=== PATIENT | male | born 1955 | race Caucasian/White ===

== ENCOUNTER 2017-09-02 11:05 | Emergency (ER) | payer BC ==
[2017-09-02] MEDS ORDERED: VANCOMYCIN HCL INJ 1000 MG VIAL IV ONE (11:38)
[2017-09-02] MEDS ORDERED: CEFTRIAXONE 1 GM/D5W RTU 1 GM/50 ML RTUPB IV ONE (11:38)
--- NOTE | 2017-09-02 11:41 | ER Document Report ---
ED Medical Screen (RME) - General Chief Complaint: Knee Pain Stated Complaint: KNEE PAIN Time Seen by Provider: 09/02/17 11:26 TRAVEL OUTSIDE OF THE U.S. IN LAST 30 DAYS: No - HPI Notes: 09/02/17 11:39 Patient is a 61-year-old male no significant past medical history presents to the ED complaining of right knee pain, swelling, redness, and warmth times 1 day. Patient states he was on his knees a little bit yesterday working. Patient states that he did have an abscess to the lower anterior knee over the last couple weeks, but has not noticed any redness or worsening pain from that site. Patient states that he cannot bend his knee without pain. He is otherwise eating and drinking without any difficulties. Denies any fever. Denies any chest pain, shortness of breath, abdominal pain, nausea/vomiting, or back pain. I have treated and performed a rapid initial assessment of this patient. A comprehensive ED assessment and evaluation of the patient, analysis of test results and completion of medical decision making process will be conducted by additional ED providers. Dr. Terry also eval'd the patient and recommended septic joint work up. PHYSICAL EXAMINATION: GENERAL: Well-appearing, well-nourished and in no acute distress. A&Ox4. Answers questions appropriately. LUNGS: Breath sounds clear to auscultation bilaterally and equal. No wheezes rales or rhonchi. HEART: Regular rate and rhythm without murmurs, rubs, gallops. Rt knee: + erythema, warmth, and swelling. + tenderness. LROM due to pain. N /V intact distal. Extremities: No cyanosis, clubbing, or edema b/l. NEUROLOGICAL: Normal speech, normal gait. PSYCH: Normal mood, normal affect. - Related Data Allergies/Adverse Reactions: Penicillins Allergy (Verified 09/02/17 11:08) Past Medical History - Social History Chew tobacco use (# tins/day): No Frequency of alcohol use: None Drug Abuse: None Renal/ Medical History: Denies: Hx Peritoneal Dialysis Physical Exam - Vital signs Vitals: Temp Pulse Resp BP Pulse Ox 98.5 F 79 20 142/75 H 97 09/02/17 11:13 09/02/17 11:13 09/02/17 11:13 09/02/17 11:13 09/02/17 11:13 Course - Vital Signs Vital signs: Temp Pulse Resp BP Pulse Ox 98.5 F 79 20 142/75 H 97 09/02/17 11:13 09/02/17 11:13 09/02/17 11:13 09/02/17 11:13 09/02/17 11:13
--- NOTE | 2017-09-02 11:53 | ER Document Report ---
ED Extremity Problem, Lower - General Chief Complaint: Knee Pain Stated Complaint: KNEE PAIN Time Seen by Provider: 09/02/17 11:26 Mode of Arrival: Ambulatory Information source: Patient TRAVEL OUTSIDE OF THE [place].S[place] IN LAST 30 DAYS: No - HPI Patient complains to provider of: Pain, Swelling Location: Knee - RIGHT Occurred: Yesterday Where: Outdoors Onset/Duration: Gradual Quality of pain: Burning, Dull, Fullness Severity: Moderate Recent injury: Yes - MINOR WOUND IN PRE-PATELLAR AREA 1 WEEK AGO Associated symptoms: Painful ambulation. denies: Chills, Fever, Unable to bear weight Exacerbated by: Movement Relieved by: Rest - Related Data Allergies/Adverse Reactions: Penicillins Allergy (Verified 09/02/17 11:08) Past Medical History - General Information source: Patient - Social History Smoking Status: Never Smoker Cigarette use (# per day): No Chew tobacco use (# tins/day): No Frequency of alcohol use: None Drug Abuse: None Lives with: Family, Other - VISITING HERE, FROM [place] Family History: Reviewed & Not Pertinent Patient has suicidal ideation: No Patient has homicidal ideation: No - Past Medical History Cardiac Medical History: Reports: Hx Hypercholesterolemia, Hx Hypertension, Other - TACHYCARDIA Pulmonary Medical History: Reports: None EENT Medical History: Reports: None Neurological Medical History: Reports: None Endocrine Medical History: Reports: None Renal/ Medical History: Reports: None. Denies: Hx Peritoneal Dialysis Malignancy Medical History: Reports None GI Medical History: Reports: None Musculoskeltal Medical History: Reports None Psychiatric Medical History: Reports: None Surgical Hx: Negative Review of Systems - Review of Systems Constitutional: No symptoms reported. denies: Chills, Fever EENT: No symptoms reported Cardiovascular: No symptoms reported Respiratory: No symptoms reported Gastrointestinal: No symptoms reported Genitourinary: No symptoms reported Musculoskeletal: See HPI Skin: See HPI Neurological/Psychological: No symptoms reported Physical Exam - Vital signs Vitals: Temp Pulse Resp BP Pulse Ox 98.5 F 79 20 142/75 H 97 09/02/17 11:13 09/02/17 11:13 09/02/17 11:13 09/02/17 11:13 09/02/17 11:13 Interpretation: Hypertensive. No: Tachycardic, Tachypneic - General General appearance: Appears well, Alert In distress: None - HEENT Head: Normocephalic Eyes: Normal Conjunctiva: Normal Ears: Normal Nasal: Normal Mouth/Lips: Normal Mucous membranes: Normal - Respiratory Respiratory status: No respiratory distress - Cardiovascular Rhythm: Regular - Abdominal Inspection: Normal Distension: No distension - Back Back: Normal - Extremities General upper extremity: Normal inspection General lower extremity: No: Normal inspection - R. KNEE (SEE BELOW) Knee: Tender - PATELLAR AREA, Pain with ROM, Patellar tendon intact, Other - HEALING PUNCTURE WOUND OVER INSERTION OF PATELLAR TENDON. NONTENDER POPLITEAL AREA. NONTENDER OVER COLLATERAL LIGAMENTS.. No: Joint effusion, Laceration, Unable to bear weight - Neurological Neuro grossly intact: Yes Cognition: Normal Orientation: AAOx4 - Skin Skin Temperature: Warm Skin Moisture: Dry Skin Color: Normal Skin Turgor: Elastic Skin irregularity: Erythema - AND WARMTH, OVER R. PATELLA. DOES NOT EXTEND PAST COLLATERAL LIGAMENTS. NO POPLITEAL REDNESS OR TENDERNESS. Course - Re-evaluation Re-evalutation: 09/02/17 13:24 Patient had sudden onset of itching and a sensation of warmth about the head and neck. He denied any chest pain, dyspnea, or wheezing. On examination, there is some erythema of the skin of the head and neck. Lung sounds are clear. Blood pressure is appropriate. He apparently is having a mild allergic reaction to the vancomycin. He will be medicated accordingly. - Vital Signs Vital signs: Temp Pulse Resp BP Pulse Ox 98.5 F 79 20 142/75 H 97 09/02/17 11:13 09/02/17 11:13 09/02/17 11:13 09/02/17 11:13 09/02/17 11:13 - Laboratory Result Diagrams: 09/02/17 13:05 09/02/17 13:05 Laboratory results interpreted by me: 09/02/17 09/02/17 13:05 13:05 WBC 14.6 H Seg Neutrophils % 83.1 H Lymphocytes % 7.3 L Absolute Neutrophils 12.1 H BUN 21 H Total Bilirubin 2.0 H C-Reactive Protein 39.1 H Discharge - Discharge Clinical Impression: Cellulitis of knee, right Condition: Stable Disposition: HOME, SELF-CARE Instructions: Cellulitis ([facility]), Trimethoprim-Sulfa ([facility]), Doxycycline ([facility]) Additional Instructions: STAY OFF YOUR FEET AND KEEP RIGHT KNEE ELEVATED MUCH POSSIBLE. TAKE YOUR ANTIBIOTIC DIRECTED, BEGINNING THIS EVENING CONTINUE ALL OF YOUR USUAL MEDICATIONS. RETURN TOMORROW (SATURDAY) FOR RE-CHECK. RETURN SOONER IF PROBLEMS ARISE, ANY TIME. Prescriptions: Doxycycline Monohydrate 100 mg PO BID #20 capsule Sulfamethoxazole/Trimethoprim [Sulfamethoxazole-Tmp Ds Tablet] 2 each PO BID # 30 tablet
--- NOTE | 2017-09-02 13:01 | RADIOLOGY REPORT (SQ) ---
EXAM DESCRIPTION: KNEE RIGHT 4 VIEWS COMPLETED DATE/TIME: 09/02/2017 12:48 pm REASON FOR STUDY: rt knee pain and swelling COMPARISON: None. NUMBER OF VIEWS: Four views. TECHNIQUE: AP, lateral, and both oblique radiographic images acquired of the right knee. LIMITATIONS: None. FINDINGS: MINERALIZATION: Normal. BONES: No acute fracture or dislocation. No worrisome bone lesions. JOINT: Trace suprapatellar knee joint effusion. Mild medial compartment joint space narrowing withou t bony spurring. SOFT TISSUES: No soft tissue swelling. No radio-opaque foreign body. OTHER: No other significant finding. IMPRESSION: No acute fracture. Trace suprapatellar knee joint effusion. Mild medial compartment joint space narrowing without bony spurring. TECHNICAL DOCUMENTATION: JOB ID: [id number] [employer]- All Rights Reserved Reading location - IP/workstation name: [facility]
[2017-09-02 13:16] LABS: ABSOLUTE BASOPHILS # (AUTO) 0.1 10^3/uL (0.0-0.2); ABSOLUTE EOSINOPHILS # (AUTO) 0.1 10^3/uL (0.0-0.6); ABSOLUTE LYMPHOCYTES (AUTO) 1.1 10^3/uL (0.5-4.7); ABSOLUTE MONOCYTES (AUTO) 1.2 10^3/uL (0.1-1.4); ABSOLUTE NEUT (AUTO) 12.1 10^3/uL (1.7-8.2); BASOPHILS % (AUTO) 0.7 % (0-2); EOSINOPHILS % (AUTO) 0.6 % (0-6); HEMATOCRIT 45.3 % (37.9-51.0); HEMOGLOBIN 15.7 g/dL (13.5-17.0); LYMPHOCYTES % (AUTO) 7.3 % (13-45); MEAN CORPUSCULAR HEMOGLOBIN 30.5 pg (27.0-33.4); MEAN CORPUSCULAR HGB CONC 34.6 g/dL (32.0-36.0); MEAN CORPUSCULAR VOLUME 88 fl (80-97); MONOCYTES % (AUTO) 8.3 % (3-13); PLATELET COUNT 218 10^3/uL (150-450); RED BLOOD COUNT 5.15 10^6/uL (4.35-5.55); RED CELL DISTRIBUTION WIDTH 12.8 % (11.5-14.0); SEGMENTED NEUTROPHILS % (AUTO) 83.1 % (42-78); TOTAL CELLS COUNTED % (AUTO) 100 %; WHITE BLOOD COUNT 14.6 10^3/uL (4.0-10.5)
[2017-09-02] MEDS ORDERED: DIPHENHYDRAMINE HCL 50 MG/ML VIAL IV ONE (13:21)
[2017-09-02] MEDS ORDERED: DEXAMETHASONE SOD PHOS INJ 10 MG/1 ML VIAL IV ONE (13:22)
[2017-09-02] MEDS ORDERED: FAMOTIDINE INJ/PF 20 MG/2 ML SDV IV ONE (13:22)
[2017-09-02 13:39] LABS: ALANINE AMINOTRANSFERASE 39 U/L (21-72); ALBUMIN 4.1 g/dL (3.5-5.0); ALKALINE PHOSPHATASE 102 U/L (38-126); ANION GAP 11 (5-19); ASPARTATE AMINO TRANSFERASE 27 U/L (17-59); BILIRUBIN,DIRECT 0.3 mg/dL (0.0-0.4); BLOOD UREA NITROGEN 21 mg/dL (7-20); C-REACTIVE PROTEIN 39.1 mg/L (<10.0); CALCIUM 8.6 mg/dL (8.4-10.2); CARBON DIOXIDE 29 mmol/L (22-30); CHLORIDE 104 mmol/L (98-107); GLUCOSE 91 mg/dL (75-110); POTASSIUM 4.2 mmol/L (3.6-5.0); SODIUM 143.6 mmol/L (137-145)
[2017-09-02 13:48] LABS: ERYTHROCYTE SEDIMENTATION RATE 8 mm/hr (0-20)
[2017-09-02] MEDS ORDERED: CEFTRIAXONE SODIUM 1,000 MG in DEXTROSE 5%-WATER 50 ML IV ONE (14:30)
[2017-09-02 16:09] VITALS: BP 162/84
== END 2017-09-02 16:09 | disposition home or self-care (01) ==
LOC: ER 11:05
DX: S81.031A Puncture wound without foreign body, right knee, initial encounter (principal); L03.115 Cellulitis of right lower limb; X58.XXXA Exposure to other specified factors, initial encounter; T36.8X5A Adverse effect of other systemic antibiotics, initial encounter; Y92.238 Other place in hospital as the place of occurrence of the external cause; Z88.0 Allergy status to penicillin
CPT/HCPCS: 99284; 96375; 96365; 96367; 36415; 87040; 85025; 85652; 86140; 80053; 73564; J1200; J0696; J3370; S0028; J1100

== ENCOUNTER 2017-09-03 14:27 | Observation (INO) | payer BC ==
[2017-09-03] MEDS ORDERED: CLINDAMYCIN 900 MG/D5W RTU 900 MG/50 ML RTUPB IV ONE (15:45)
[2017-09-03] MEDS ORDERED: HYDROMORPHONE HCL INJ/PF 2 MG/ML AMPULE IV ONE (15:47)
--- NOTE | 2017-09-03 15:47 | ER Document Report ---
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 A comprehensive ED assessment and evaluation of the patient, analysis of test results and completion of the medical decision making process will be conducted by additional ED providers. PHYSICAL EXAMINATION: GENERAL: Well-appearing, well-nourished and in no acute distress. HEAD: Atraumatic, normocephalic. EYES: Pupils equal round extraocular movements intact, conjunctiva are normal. ENT: Nares patent NECK: Normal range of motion LUNGS: No respiratory distress Musculoskeletal: Normal range of motion NEUROLOGICAL: Normal speech, normal gait. PSYCH: Normal mood, normal affect. SKIN: large area of erythema with edema of the right knee TRAVEL OUTSIDE OF THE U.S. IN LAST 30 DAYS: No - Related Data Allergies/Adverse Reactions: Penicillins Allergy (Verified 09/03/17 14:29) vancomycin Allergy (Verified 09/03/17 14:29) Past Medical History - Past Medical History Cardiac Medical History: Reports: Hx Hypercholesterolemia, Hx Hypertension Renal/ Medical History: Denies: Hx Peritoneal Dialysis Physical Exam - Vital signs Vitals: Temp Pulse Resp BP Pulse Ox 97.9 F 81 16 163/86 H 97 09/03/17 14:36 09/03/17 14:36 09/03/17 14:36 09/03/17 14:36 09/03/17 14:36 Course - Vital Signs Vital signs: Temp Pulse Resp BP Pulse Ox 97.9 F 81 16 163/86 H 97 09/03/17 14:36 09/03/17 14:36 09/03/17 14:36 09/03/17 14:36 09/03/17 14:36
[2017-09-03] MEDS ORDERED: METOCLOPRAMIDE HCL INJ/PF 10 MG/2 ML SDV IV ONE (16:56)
[2017-09-03 17:33] LABS: HEMATOCRIT 43.9 % (37.9-51.0); HEMOGLOBIN 15.2 g/dL (13.5-17.0); MEAN CORPUSCULAR HEMOGLOBIN 30.6 pg (27.0-33.4); MEAN CORPUSCULAR HGB CONC 34.5 g/dL (32.0-36.0); MEAN CORPUSCULAR VOLUME 89 fl (80-97); PLATELET COUNT 230 10^3/uL (150-450); RED BLOOD COUNT 4.95 10^6/uL (4.35-5.55); RED CELL DISTRIBUTION WIDTH 12.9 % (11.5-14.0); WHITE BLOOD COUNT 20.2 10^3/uL (4.0-10.5)
[2017-09-03 17:53] LABS: ALANINE AMINOTRANSFERASE 85 U/L (21-72); ALBUMIN 4.3 g/dL (3.5-5.0); ALKALINE PHOSPHATASE 117 U/L (38-126); ASPARTATE AMINO TRANSFERASE 97 U/L (17-59); BILIRUBIN,DIRECT 0.5 mg/dL (0.0-0.4); BILIRUBIN,TOTAL 0.7 mg/dL (0.2-1.3); BLOOD UREA NITROGEN 27 mg/dL (7-20); C-REACTIVE PROTEIN 48.9 mg/L (<10.0); CALCIUM 8.7 mg/dL (8.4-10.2); CARBON DIOXIDE 26 mmol/L (22-30); GLUCOSE 108 mg/dL (75-110)
[2017-09-03 17:58] LABS: ABSOLUTE LYMPHOCYTES# (MANUAL) 1.2 10^3/uL (0.5-4.7); ABSOLUTE MONOCYTES # (MANUAL) 1.8 10^3/uL (0.1-1.4); ABSOLUTE NEUTROPHILS# (MANUAL) 17.2 10^3/uL (1.7-8.2); BASOPHILS % (MANUAL) 0 % (0-2); EOSINOPHILS % (MANUAL) 0 % (0-6); LYMPHOCYTES % (MANUAL) 6 % (13-45); MONOCYTES % (MANUAL) 9 % (3-13); SEGMENTED NEUTROPHILS % (MAN) 85 % (42-78); TOTAL CELLS COUNTED 100
[2017-09-03 17:59] LABS: PLATELET COMMENT ADEQUATE; TOXIC GRANULATION SLIGHT
[2017-09-03 18:09] LABS: ANION GAP 13 (5-19); CHLORIDE 105 mmol/L (98-107); ERYTHROCYTE SEDIMENTATION RATE 20 mm/hr (0-20); POTASSIUM 4.1 mmol/L (3.6-5.0); SODIUM 143.9 mmol/L (137-145)
[2017-09-03] MEDS ORDERED: PROMETHAZINE HCL INJ 25 MG/1 ML VIAL ONE (19:12)
[2017-09-03] MEDS ORDERED: LINEZOLID 600 MG/300 ML RTUPB IV ONE (19:24)
--- NOTE | 2017-09-03 19:27 | ER Document Report ---
ED General - General Chief Complaint: Wound Recheck Stated Complaint: WOUND RECHECK Time Seen by Provider: 09/03/17 15:41 Mode of Arrival: Ambulatory Notes: Patient is a 61-year-old male with a past medical history of tachycardia, hypertension, hyperlipidemia, who presents for the second time in 2 days with concerns of progressively worsening right knee pain and erythema. The patient was seen yesterday, diagnosed with cellulitis, started on doxycycline and Bactrim. He states that he has been taking as directed. He notes however that the pain and swelling has gotten progressively worse and is now a severe, throbbing, constant pain that makes it almost impossible for him to walk. He denies any history of similar symptoms in the past. He is visiting from out of town so has been unable to see his primary doctor regarding today's concerns. He denies any fever or constitutional symptoms. TRAVEL OUTSIDE OF THE [place] IN LAST 30 DAYS: No - Related Data Allergies/Adverse Reactions: Penicillins Allergy (Verified 09/03/17 14:29) vancomycin Allergy (Verified 09/03/17 14:29) Past Medical History - General Information source: Patient, [facility] Records - Social History Smoking Status: Never Smoker Chew tobacco use (# tins/day): No Frequency of alcohol use: None Drug Abuse: None Lives with: Family Family History: Reviewed & Not Pertinent Patient has suicidal ideation: No Patient has homicidal ideation: No - Past Medical History Cardiac Medical History: Reports: Hx Hypercholesterolemia, Hx Hypertension Renal/ Medical History: Denies: Hx Peritoneal Dialysis Review of Systems - Review of Systems Notes: Constitutional: Negative for fever. HENT: Negative for sore throat. Eyes: Negative for visual changes. Cardiovascular: Negative for chest pain. Respiratory: Negative for shortness of breath. Gastrointestinal: Negative for abdominal pain, vomiting or diarrhea. Genitourinary: Negative for dysuria. Musculoskeletal: Positive for right knee pain Skin: Positive for rash. Neurological: Negative for headaches, weakness or numbness. 10 point ROS negative except as marked above and in HPI. Physical Exam - Vital signs Vitals: Temp Pulse Resp BP Pulse Ox 97.9 F 81 16 163/86 H 97 09/03/17 14:36 09/03/17 14:36 09/03/17 14:36 09/03/17 14:36 09/03/17 14:36 Interpretation: Hypertensive Notes: PHYSICAL EXAMINATION: GENERAL: Well-appearing, well-nourished and in no acute distress. HEAD: Atraumatic, normocephalic. EYES: Pupils equal round and reactive to light, extraocular movements intact, sclera anicteric, conjunctiva are normal. ENT: nares patent, oropharynx clear without exudates. Moist mucous membranes. NECK: Normal range of motion, supple without lymphadenopathy LUNGS: Breath sounds clear to auscultation bilaterally and equal. No wheezes rales or rhonchi. HEART: Regular rate and rhythm without murmurs ABDOMEN: Soft, nontender, normoactive bowel sounds. No guarding, no rebound. No masses appreciated. EXTREMITIES: Patient is unable to flex the right knee past 30. No apparent joint effusion on bedside examination or on ultrasound examination. NEUROLOGICAL: No focal neurological deficits. Moves all extremities spontaneously and on command. PSYCH: Normal mood, normal affect. SKIN: Warm, Dry, normal turgor, diffuse erythema of the right knee joint Course - Re-evaluation Re-evalutation: 09/03/17 19:26 Patient presents with progressively worsening right knee pain and inability to actively or passively move the knee past 30 degrees of flexion. He is already on doxycycline and Bactrim as an outpatient and has been taking as directed. He also apparently received IV antibiotics in the emergency room yesterday prior to discharge. His white count has dramatically up trended from 14-20 and his CRP is also up trended. On physical examination there is a diffuse cellulitis overlying the right knee. Bedside ultrasound does not reveal any apparent joint effusion nor did the x-ray yesterday. I am concerned with a safety of a arthrocentesis given that all sites that would be acceptable for approach are covered with cellulitis and there is not a clear joint effusion. However my main concern is for possible septic joint versus an overlying worsening cellulitis. I have discussed with Dr. Albarran, he recommends an MRI of the knee and will consult on the patient. I will discussed with the hospitalist for admission as the patient will require IV antibiotics and has additional medical comorbidities. 09/03/17 19:[address] Tucker who is excepted the patient for admission. MRI pending. - Vital Signs Vital signs: Temp Pulse Resp BP Pulse Ox 97.4 F 93 21 H 141/95 H 94 09/03/17 19:21 09/04/17 04:36 09/04/17 04:36 09/04/17 04:36 09/04/17 04:36 - Laboratory Result Diagrams: 09/03/17 16:35 09/03/17 16:35 Laboratory results interpreted by me: 09/03/17 09/03/17 16:35 16:35 WBC 20.2 H Seg Neuts % (Manual) 85 H Lymphocytes % (Manual) 6 L Abs Neuts (Manual) 17.2 H Abs Monocytes (Manual) 1.8 H BUN 27 H Creatinine 1.31 H Est GFR (Non-Af Amer) 56 L Direct Bilirubin 0.5 H AST 97 H ALT 85 H C-Reactive Protein 48.9 H - Diagnostic Test Radiology reviewed: Reports reviewed Discharge - Discharge Clinical Impression: Cellulitis of knee, right Right knee pain Qualifiers: Chronicity: acute Qualified Code(s): M25.561 - Pain in right knee Condition: Fair Disposition: ADMITTED OBSERVATION Admitting Provider: Hospitalist Unit Admitted: Medical Floor
[2017-09-03] MEDS ORDERED: NORMAL SALINE 1000 ML 1,000 ML IV SCH (19:45)
[2017-09-03] MEDS ORDERED: ACETAMINOPHEN 325 MG TABLET PO PRN (19:45)
[2017-09-03] MEDS ORDERED: MAGNESIUM HYDROXIDE SUSP 30 ML UDCUP PO PRN (19:45)
[2017-09-03] MEDS ORDERED: MAG HYDROX/AL HYDROX/SIMETH SUSP 30 ML UDCUP PO PRN (19:45)
[2017-09-03] MEDS ORDERED: IPRATROPIUM/ALBUTEROL 0.5-2.5 MG/3 ML AMPUL NEB PRN (19:45)
[2017-09-03] MEDS ORDERED: COLCHICINE 0.6 MG TABLET PO ONE (20:30)
[2017-09-03] MEDS: ATORVASTATIN CALCIUM 10 MG TABLET PO SCH (22:06)
[2017-09-03] MEDS: HEPARIN SOD (PORCINE) 5,000 UNIT/ML 1 ML SYRINGE SUBCUT SCH (22:07)
[2017-09-03] MEDS ORDERED: DOFETILIDE 500 MCG CAPSULE PO ONE (22:18)
--- NOTE | 2017-09-03 23:53 | RADIOLOGY REPORT (SQ) ---
EXAM DESCRIPTION: CT LOWER EXTREMITY WITHOUT THEN WITH IV CONTRAST COMPLETED DATE/TME: 09/03/2017 19:22 CLINICAL HISTORY: 61 years Male, eval possible right knee septic joint COMPARISON: CR, September 02, 2017 TECHNIQUE/LIMITATION: Conventional MRI before and after IV gadolinium. FINDINGS: Moderate subcutaneous soft tissue edema and fluid surrounds the right knee, moderate inferiorly surfacing oblique tear posterior horn of the medial meniscus, intact lateral meniscus, normal cruciate ligaments, intact patellar stabilization structures, normal medial, lateral, posterior lateral support structures. Small-moderate right knee effusion. Normal bone marrow signal. Cartilaginous surfaces appear normal. Popliteal structures and neurovasculature are unremarkable. No significant enhancement abnormality. IMPRESSION: 1. Moderate subcutaneous edema of the right knee. [id number] right knee effusion. 2. Right posterior medial meniscal tear.
[2017-09-04 05:31] LABS: ABSOLUTE BASOPHILS # (AUTO) 0.1 10^3/uL (0.0-0.2); ABSOLUTE EOSINOPHILS # (AUTO) 0.2 10^3/uL (0.0-0.6); ABSOLUTE LYMPHOCYTES (AUTO) 1.5 10^3/uL (0.5-4.7); ABSOLUTE MONOCYTES (AUTO) 1.3 10^3/uL (0.1-1.4); ABSOLUTE NEUT (AUTO) 12.6 10^3/uL (1.7-8.2); BASOPHILS % (AUTO) 0.9 % (0-2); EOSINOPHILS % (AUTO) 1.2 % (0-6); HEMATOCRIT 41.2 % (37.9-51.0); HEMOGLOBIN 14.3 g/dL (13.5-17.0); LYMPHOCYTES % (AUTO) 9.4 % (13-45); MEAN CORPUSCULAR HEMOGLOBIN 30.8 pg (27.0-33.4); MEAN CORPUSCULAR HGB CONC 34.7 g/dL (32.0-36.0); MEAN CORPUSCULAR VOLUME 89 fl (80-97); MONOCYTES % (AUTO) 8.4 % (3-13); PLATELET COUNT 227 10^3/uL (150-450); RED BLOOD COUNT 4.64 10^6/uL (4.35-5.55); RED CELL DISTRIBUTION WIDTH 13.2 % (11.5-14.0); SEGMENTED NEUTROPHILS % (AUTO) 80.1 % (42-78); TOTAL CELLS COUNTED % (AUTO) 100 %; WHITE BLOOD COUNT 15.7 10^3/uL (4.0-10.5)
[2017-09-04 05:38] LABS: ANION GAP 10 (5-19); BLOOD UREA NITROGEN 28 mg/dL (7-20); CALCIUM 8.2 mg/dL (8.4-10.2); CARBON DIOXIDE 26 mmol/L (22-30); CHLORIDE 107 mmol/L (98-107); GLUCOSE 93 mg/dL (75-110); POTASSIUM 4.3 mmol/L (3.6-5.0); SODIUM 142.7 mmol/L (137-145)
--- NOTE | 2017-09-04 06:13 | PDOC H&P ---
History of Present Illness Admission Date/PCP: 09/03/17 20:22 Patient complains of: Right knee pain and swelling History of Present Illness: DAMARIS TOUSSAINT is a 61 year old male with history of tachycardia, hypertension and dyslipidemia. Patient presents second time in 48 hours with increasing right knee pain swelling and erythema. Patient filled the prescription of Bactrim and doxycycline but has developed significant pain with weightbearing prompting evaluation emergency room. He denies previous episode, he has been working on his knees replacing some henrry. He has what appears to be a 1 cm abrasion or resolving abscess superficial to the tibial tuberosity. Patient otherwise denies recent antibiotic use or previous episode. He is started on linezolid. Given superficial erythema and concern for Cellulitis arthrocentesis is deferred pending orthopedic consult. Past Medical History Cardiac Medical History: Reports: Hyperlipidema, Hypertension Social History Information Source: Patient Lives with: Family Smoking Status: Never Smoker Frequency of Alcohol Use: None Drugs: None Hx Prescription Drug Abuse: No - Advance Directive Resuscitation Status: Full Code Family History Family History: Hypertension Parental Family History Reviewed: Yes Children Family History Reviewed: Yes Sibling(s) Family History Reviewed.: Yes Medication/Allergy Home Medications: Aspirin [Aspirin EC] 81 mg PO QAM 09/03/17 Dofetilide [Tikosyn 500 Mcg Capsule] 500 mcg PO Q12A 09/03/17 Pravastatin Sodium [Pravachol] 40 mg PO QAM 09/03/17 Valsartan [Diovan 160 mg Tablet] 160 mg PO QAM 09/03/17 Allergies/Adverse Reactions: Penicillins Allergy (Verified 09/03/17 14:29) vancomycin Allergy (Verified 09/03/17 14:29) Review of Systems Constitutional: ABSENT: chills, fever(s), headache(s), weight gain, weight loss Eyes: ABSENT: visual disturbances Ears: ABSENT: hearing changes Cardiovascular: ABSENT: chest pain, dyspnea on exertion, edema, orthropnea, palpitations Respiratory: ABSENT: cough, hemoptysis Gastrointestinal: ABSENT: abdominal pain, constipation, diarrhea, hematemesis, hematochezia, nausea, vomiting Genitourinary: ABSENT: dysuria, hematuria Musculoskeletal: ABSENT: joint swelling Integumentary: ABSENT: rash, wounds Neurological: ABSENT: abnormal gait, abnormal speech, confusion, dizziness, focal weakness, syncope Psychiatric: ABSENT: anxiety, depression, homidical ideation, suicidal ideation Endocrine: ABSENT: cold intolerance, heat intolerance, polydipsia, polyuria Hematologic/Lymphatic: ABSENT: easy bleeding, easy bruising Physical Exam Vital Signs: Temp Pulse Resp BP Pulse Ox 97.4 F 93 21 H 141/95 H 94 09/03/17 19:21 09/04/17 04:36 09/04/17 04:36 09/04/17 04:36 09/04/17 04:36 General appearance: PRESENT: mild distress, well-developed, well-nourished Head exam: PRESENT: atraumatic, normocephalic Eye exam: PRESENT: conjunctiva pink, EOMI, PERRLA. ABSENT: scleral icterus Ear exam: PRESENT: normal external ear exam Mouth exam: PRESENT: moist, tongue midline Neck exam: ABSENT: carotid bruit, JVD, lymphadenopathy, thyromegaly Respiratory exam: PRESENT: clear to auscultation matt. ABSENT: rales, rhonchi, wheezes Cardiovascular exam: PRESENT: RRR. ABSENT: diastolic murmur, rubs, systolic murmur Pulses: PRESENT: normal dorsalis pedis pul Vascular exam: PRESENT: normal capillary refill GI/Abdominal exam: PRESENT: normal bowel sounds, soft. ABSENT: distended, guarding, mass, organolmegaly, rebound, tenderness Rectal exam: PRESENT: deferred Extremities exam: PRESENT: full ROM. ABSENT: calf tenderness, clubbing, pedal edema Musculoskeletal exam: PRESENT: full ROM, other - Right knee flexion limited by pain, minimal joint effusion detected, 8 x 10 cm border of cellulitis without open ulcer. Neurological exam: PRESENT: alert, awake, oriented to person, oriented to place , oriented to time, oriented to situation, CN II-XII grossly intact. ABSENT: motor sensory deficit Psychiatric exam: PRESENT: appropriate affect, normal mood. ABSENT: homicidal ideation, suicidal ideation Skin exam: PRESENT: dry, intact, warm. ABSENT: cyanosis, rash Results Laboratory Results: 09/04/17 05:05 09/04/17 05:05 09/04/17 09/04/17 05:05 05:05 WBC 15.7 H RBC 4.64 Hgb 14.3 Hct 41.2 MCV 89 MCH 30.8 MCHC 34.7 RDW 13.2 Plt Count 227 Seg Neutrophils % 80.1 H Lymphocytes % 9.4 L Monocytes % 8.4 Eosinophils % 1.2 Basophils % 0.9 Absolute Neutrophils 12.6 H Absolute Lymphocytes 1.5 Absolute Monocytes 1.3 Absolute Eosinophils 0.2 Absolute Basophils 0.1 Sodium 142.7 Potassium 4.3 Chloride 107 Carbon Dioxide 26 Anion Gap 10 BUN 28 H Creatinine 1.16 Est GFR ( Amer) > 60 Est GFR (Non-Af Amer) > 60 Glucose 93 Calcium 8.2 L Impressions: Lower Extremity MRI 09/03/17 19:22 IMPRESSION: 1. Moderate subcutaneous edema of the right knee. [id number] right knee effusion. 2. Right posterior medial meniscal tear. Assessment & Plan - Diagnosis (1) Cellulitis of knee, right Is this a current diagnosis for this admission?: Yes Plan: Cellulitis Will obtain blood and wound culture repeat CBC, continue empiric antibiotic coverage for community-acquired MRSA with double coverage and symptomatic management. Orthopedic consult given initial antibiotic failure and arthrocentesis. (2) Right knee pain Qualifiers: Chronicity: acute Qualified Code(s): M25.561 - Pain in right knee Is this a current diagnosis for this admission?: Yes Plan: Secondary to #1, symptomatic management (3) Tachycardia Is this a current diagnosis for this admission?: Yes Plan: Outpatient regiment - Time Time Spent: 30 to 50 Minutes - Inpatient Certification Medical Necessity: Need Close Monitoring Due to Risk of Patient Decompensation
[2017-09-04] MEDS: HEPARIN SOD (PORCINE) 5,000 UNIT/ML 1 ML SYRINGE SUBCUT SCH ×3 (06:15→21:51)
--- NOTE | 2017-09-04 07:13 | PDOC CONSULTATION ---
Consultation Consult Date: 09/04/17 Consult reason:: Right knee swelling/pain/decreased range of motion, functional decline History of Present Illness Admission Date/PCP: 09/03/17 20:22 History of Present Illness: DAMARIS TOUSSAINT is a 61 year old male with a noncontributory past medical history presented to the emergency room 3 days ago with right knee Pelling swelling and pain without any traumatic antecedent. The patient was started on doxycycline and Bactrim and states that there was initially a slight improvement in his symptoms but subsequently there is been a progression both in terms of the swelling and pain as well as his ability to flex the knee. He again presented to the emergency room with tentative diagnosis of a septic prepatellar bursitis versus a septic arthritis of the knee. An MRI scan demonstrated largely subcutaneous inflammation but also a slight effusion in the knee. Orthopedics is consulted for assistance and management. Past Medical History Cardiac Medical History: Reports: Hyperlipidema, Hypertension Past Surgical History Past Surgical History: Reports: None Social History Information Source: Patient, [facility] Records Lives with: Family Smoking Status: Never Smoker Frequency of Alcohol Use: None Drugs: None Hx Prescription Drug Abuse: No - Advance Directive Resuscitation Status: Full Code Family History Family History: Hypertension Parental Family History Reviewed: No Children Family History Reviewed: No Sibling(s) Family History Reviewed.: No Medication/Allergy Home Medications: Aspirin [Aspirin EC] 81 mg PO QAM 09/03/17 Dofetilide [Tikosyn 500 Mcg Capsule] 500 mcg PO Q12A 09/03/17 Pravastatin Sodium [Pravachol] 40 mg PO [facility] 09/03/17 Valsartan [Diovan 160 mg Tablet] 160 mg PO [facility] 09/03/17 Allergies/Adverse Reactions: Penicillins Allergy (Verified 09/03/17 14:29) vancomycin Allergy (Verified 09/03/17 14:29) Review of Systems All systems: as per H Physical Exam Vital Signs: Temp Pulse Resp BP Pulse Ox 36.3 C 64 18 155/96 H 96 09/03/17 19:21 09/04/17 07:06 09/04/17 07:06 09/04/17 07:06 09/04/17 07:06 Physical Exam: Patient is a relatively tall thin middle-aged white male lying in the [place]. He seems to be resting comfortably until I awaken him and then he is complaining of pain. General appearance: PRESENT: mild distress Head exam: PRESENT: normocephalic Respiratory exam: PRESENT: unlabored Cardiovascular exam: PRESENT: RRR Pulses: PRESENT: +1 pedal pulses bilateral Vascular exam: PRESENT: normal capillary refill GI/Abdominal exam: PRESENT: soft Rectal exam: PRESENT: deferred Extremities exam: PRESENT: other - Right knee has an erythematous prepatellar region that extends almost 180 to the mid axillary line in the mid inguinal line. The erythema seems to extend outside of a previously dotted marker line which presumably denoted the extent at some point in the past but it is not timed. The skin is indurated and tender to palpation. There is no break in the skin in the prepatellar region. There is a small eschar over the tibial tubercle but the patient states that this is from 3 weeks ago. Passive range of motion of the knee is pain-free between 0 and potentially 30. After that the becomes increasing discomfort. There is probably a low-grade effusion present clinically. To the extent that it can be assessed is no ligamentous instability. There is no other skin abnormalities. Distal neurovascular examination is intact. Neurological exam: PRESENT: alert, awake, oriented to person, oriented to place , oriented to time, oriented to situation. ABSENT: motor sensory deficit Psychiatric exam: PRESENT: appropriate affect, normal mood. ABSENT: homicidal ideation, suicidal ideation Skin exam: PRESENT: dry, intact, warm. ABSENT: cyanosis, rash Results Laboratory Results: 09/04/17 05:05 09/04/17 05:05 09/04/17 09/04/17 05:05 05:05 WBC 15.7 H RBC 4.64 Hgb 14.3 Hct 41.2 MCV 89 MCH 30.8 MCHC 34.7 RDW 13.2 Plt Count 227 Seg Neutrophils % 80.1 H Lymphocytes % 9.4 L Monocytes % 8.4 Eosinophils % 1.2 Basophils % 0.9 Absolute Neutrophils 12.6 H Absolute Lymphocytes 1.5 Absolute Monocytes 1.3 Absolute Eosinophils 0.2 Absolute Basophils 0.1 Sodium 142.7 Potassium 4.3 Chloride 107 Carbon Dioxide 26 Anion Gap 10 BUN 28 H Creatinine 1.16 Est GFR ( Amer) > 60 Est GFR (Non-Af Amer) > 60 Glucose 93 Calcium 8.2 L Impressions: Lower Extremity MRI 09/03/17 19:22 IMPRESSION: 1. Moderate subcutaneous edema of the right knee. [id number] right knee effusion. 2. Right posterior medial meniscal tear. Status: Imported from PACS Assessment & Plan - Diagnosis (1) Septic prepatellar bursitis of right knee Is this a current diagnosis for this admission?: Yes Plan: 61-year-old white male with a right knee inflammatory process that has existed for 3 days without traumatic antecedent. It is probably best be considered not responsive to the oral antibiotics that he is gotten previously as well as the IV antibiotics is gotten during the current admission. The distinction that needs to be made is whether this represents a prepatellar bursitis or potentially an underlying septic arthritis of the knee which is a surgical condition. The patient is now receiving IV clindamycin. My inclination would be to add an IV vancomycin to this to cover potentially an MRS a and continue to observe for several more hours. Alternatively an aspiration of the prepatellar bursa could be performed to attempt to identify the pathogen. Lastly the question comes up whether or not an arthrocentesis should be performed. I would be somewhat concerned about going through inflamed tissue and potentially seeding the knee joint. - Time Time Spent: 50 to 70 Minutes Anticipated discharge: Other Within: Other
[2017-09-04] MEDS: VALSARTAN 160 MG TABLET PO SCH (07:52)
[2017-09-04] MEDS: ASPIRIN 81 MG TABLET, ENT COATED PO SCH (07:52)
[2017-09-04] MEDS ORDERED: (PENDING PHARMACY ID) (Pravastatin Sodium [Pravachol] 40 MG) PO SCH (08:00)
[2017-09-04] MEDS: KETOROLAC TROMETHAMINE INJ/PF 30 MG/1 ML SDV IV PRN ×2 (09:52→20:03)
[2017-09-04] MEDS: DOCUSATE SODIUM 100 MG CAPSULE PO SCH ×2 (09:56→17:15)
[2017-09-04] MEDS: DOFETILIDE 500 MCG CAPSULE PO SCH ×2 (09:56→18:51)
[2017-09-04] MEDS: CLINDAMYCIN 600 MG/D5W RTU 600 MG/50 ML RTUPB IV SCH ×2 (14:23→21:47)
--- NOTE | 2017-09-04 16:25 | PDOC PROGRESS REPORT ---
Subjective Progress Note for:: 09/04/17 Subjective:: DAMARIS TOUSSAINT is a 61 year old male with history of tachycardia, hypertension and dyslipidemia. Patient presents second time in 48 hours with increasing right knee pain swelling and erythema. Patient filled the prescription of Bactrim and doxycycline but has developed significant pain with weightbearing prompting evaluation emergency room. He denies previous episode, he has been working on his knees replacing some henrry. He has what appears to be a 1 cm abrasion or resolving abscess superficial to the tibial tuberosity. Patient otherwise denies recent antibiotic use or previous episode. He is started on linezolid. Given superficial erythema and concern for Cellulitis arthrocentesis is deferred pending orthopedic consult. Reason For Visit: LEG CELLULITIS Physical Exam Vital Signs: Temp Pulse Resp BP Pulse Ox 97.7 F 66 18 157/85 H 100 09/04/17 12:12 09/04/17 12:12 09/04/17 12:12 09/04/17 12:01 09/04/17 12:12 General appearance: PRESENT: no acute distress, well-developed, well-nourished Head exam: PRESENT: atraumatic, normocephalic Eye exam: PRESENT: conjunctiva pink, EOMI, PERRLA. ABSENT: scleral icterus Ear exam: PRESENT: normal external ear exam Mouth exam: PRESENT: moist, tongue midline Neck exam: ABSENT: carotid bruit, JVD, lymphadenopathy, thyromegaly Respiratory exam: PRESENT: clear to auscultation matt. ABSENT: rales, rhonchi, wheezes Cardiovascular exam: PRESENT: RRR. ABSENT: diastolic murmur, rubs, systolic murmur Pulses: PRESENT: normal dorsalis pedis pul Vascular exam: PRESENT: normal capillary refill GI/Abdominal exam: PRESENT: normal bowel sounds, soft. ABSENT: distended, guarding, mass, organolmegaly, rebound, tenderness Rectal exam: PRESENT: deferred Extremities exam: PRESENT: joint swelling - R knee, other - swelling and erythema and tenderness R knee with decreased ROM. ABSENT: calf tenderness, clubbing, pedal edema Neurological exam: PRESENT: alert, awake, oriented to person, oriented to place , oriented to time, oriented to situation, CN II-XII grossly intact. ABSENT: motor sensory deficit Psychiatric exam: PRESENT: appropriate affect, normal mood. ABSENT: homicidal ideation, suicidal ideation Skin exam: PRESENT: dry, intact, warm. ABSENT: cyanosis, rash Results Laboratory Results: 09/04/17 05:05 09/04/17 05:05 09/04/17 09/04/17 05:05 05:05 WBC 15.7 H RBC 4.64 Hgb 14.3 Hct 41.2 MCV 89 MCH 30.8 MCHC 34.7 RDW 13.2 Plt Count 227 Seg Neutrophils % 80.1 H Lymphocytes % 9.4 L Monocytes % 8.4 Eosinophils % 1.2 Basophils % 0.9 Absolute Neutrophils 12.6 H Absolute Lymphocytes 1.5 Absolute Monocytes 1.3 Absolute Eosinophils 0.2 Absolute Basophils 0.1 Sodium 142.7 Potassium 4.3 Chloride 107 Carbon Dioxide 26 Anion Gap 10 BUN 28 H Creatinine 1.16 Est GFR ( Amer) > 60 Est GFR (Non-Af Amer) > 60 Glucose 93 Calcium 8.2 L Impressions: Lower Extremity MRI 09/03/17 19:22 IMPRESSION: 1. Moderate subcutaneous edema of the right knee. [id number] right knee effusion. 2. Right posterior medial meniscal tear. Assessment & Plan - Diagnosis (1) Right knee pain Qualifiers: Chronicity: acute Qualified Code(s): M25.561 - Pain in right knee Is this a current diagnosis for this admission?: Yes (2) Septic prepatellar bursitis of right knee Is this a current diagnosis for this admission?: Yes Plan: Appreciate Ortho input. Patient is on IV clindamycin which covers potential MRSA as we;; as gram positives and gram negatives and there is no n need to add Vancomycin separately however if this the preference we can definitely dc the Clindamycin and continue Vanc only. No plans for arthrocentesis at this time as per Ortho - Time Time Spent with patient: 15-24 minutes Medications reviewed and adjusted accordingly: Yes Anticipated discharge: Home Within: within 72 hours - Inpatient Certification Based on my medical assessment, after consideration of the patient's comorbidities, presenting symptoms, or acuity I expect that the services needed warrant INPATIENT care.: Yes Medical Necessity: Failure to Improve With Outpatient Therapy, Risk of Complication if Not Cared For in Hospital
[2017-09-04] MEDS: ATORVASTATIN CALCIUM 10 MG TABLET PO SCH (21:48)
[2017-09-05] MEDS: CLINDAMYCIN 600 MG/D5W RTU 600 MG/50 ML RTUPB IV SCH ×4 (03:19→21:22)
[2017-09-05 06:18] LABS: ABSOLUTE BASOPHILS # (AUTO) 0.1 10^3/uL (0.0-0.2); ABSOLUTE EOSINOPHILS # (AUTO) 0.3 10^3/uL (0.0-0.6); ABSOLUTE LYMPHOCYTES (AUTO) 1.8 10^3/uL (0.5-4.7); ABSOLUTE MONOCYTES (AUTO) 0.9 10^3/uL (0.1-1.4); ABSOLUTE NEUT (AUTO) 5.8 10^3/uL (1.7-8.2); BASOPHILS % (AUTO) 1.1 % (0-2); EOSINOPHILS % (AUTO) 3.3 % (0-6); HEMATOCRIT 42.4 % (37.9-51.0); HEMOGLOBIN 14.9 g/dL (13.5-17.0); LYMPHOCYTES % (AUTO) 19.9 % (13-45); MEAN CORPUSCULAR HEMOGLOBIN 31.3 pg (27.0-33.4); MEAN CORPUSCULAR HGB CONC 35.1 g/dL (32.0-36.0); MEAN CORPUSCULAR VOLUME 89 fl (80-97); MONOCYTES % (AUTO) 10.1 % (3-13); PLATELET COUNT 215 10^3/uL (150-450); RED BLOOD COUNT 4.76 10^6/uL (4.35-5.55); SEGMENTED NEUTROPHILS % (AUTO) 65.6 % (42-78); TOTAL CELLS COUNTED % (AUTO) 100 %; WHITE BLOOD COUNT 8.8 10^3/uL (4.0-10.5)
[2017-09-05] MEDS: HEPARIN SOD (PORCINE) 5,000 UNIT/ML 1 ML SYRINGE SUBCUT SCH ×3 (06:19→21:22)
[2017-09-05] MEDS: DOFETILIDE 500 MCG CAPSULE PO SCH ×2 (06:19→18:33)
[2017-09-05 06:34] LABS: ANION GAP 9 (5-19); BLOOD UREA NITROGEN 21 mg/dL (7-20); CALCIUM 8.2 mg/dL (8.4-10.2); CARBON DIOXIDE 25 mmol/L (22-30); CHLORIDE 107 mmol/L (98-107); GLUCOSE 86 mg/dL (75-110); SODIUM 141.4 mmol/L (137-145)
--- NOTE | 2017-09-05 06:42 | PDOC PROGRESS REPORT ---
Subjective Progress Note for:: 09/05/17 Reason For Visit: LEG CELLULITIS 61-year-old white male with a right knee infectious process thought to be a prepatellar septic bursitis. Patient reports improvement in symptoms and improvement in active range of motion of the knee. Physical Exam Vital Signs: Temp Pulse Resp BP Pulse Ox 37.1 C 64 18 145/69 H 98 09/05/17 00:00 09/05/17 00:00 09/05/17 00:00 09/05/17 00:00 09/04/17 12:31 Intake & Output 09/03/17 09/04/17 09/05/17 06:59 06:59 06:59 Intake Total 925 Output Total 600 Balance 325 Weight 100.335 kg General appearance: PRESENT: no acute distress Extremities exam: PRESENT: other - Erythema is now inside of the skin markings which is significantly improved from yesterday. Active and passive range of motion of the knee are likewise improved but not full. Results Laboratory Results: 09/05/17 05:34 09/05/17 05:34 09/05/17 09/05/17 05:34 05:34 WBC 8.8 RBC 4.76 Hgb 14.9 Hct 42.4 MCV 89 MCH 31.3 MCHC 35.1 RDW 13.0 Plt Count 215 Seg Neutrophils % 65.6 Lymphocytes % 19.9 Monocytes % 10.1 Eosinophils % 3.3 Basophils % 1.1 Absolute Neutrophils 5.8 Absolute Lymphocytes 1.8 Absolute Monocytes 0.9 Absolute Eosinophils 0.3 Absolute Basophils 0.1 Sodium 141.4 Potassium 5.0 Chloride 107 Carbon Dioxide 25 Anion Gap 9 BUN 21 H Creatinine 1.11 Est GFR ( Amer) > 60 Est GFR (Non-Af Amer) > 60 Glucose 86 Calcium 8.2 L Impressions: Lower Extremity MRI 09/03/17 19:22 IMPRESSION: 1. Moderate subcutaneous edema of the right knee. [id number] right knee effusion. 2. Right posterior medial meniscal tear. Assessment & Plan - Diagnosis (1) Septic prepatellar bursitis of right knee Is this a current diagnosis for this admission?: Yes Plan: Resolving with current antibiotic regimen - Time Time Spent with patient: 15-24 minutes Anticipated discharge: Home with Homehealth Within: Other
[2017-09-05] MEDS: DOCUSATE SODIUM 100 MG CAPSULE PO SCH ×2 (09:20→16:19)
[2017-09-05] MEDS: VALSARTAN 160 MG TABLET PO SCH (09:28)
[2017-09-05] MEDS: ASPIRIN 81 MG TABLET, ENT COATED PO SCH (09:28)
[2017-09-05] MEDS ORDERED: ONDANSETRON HCL INJ/PF 4 MG/2 ML SDV IV PRN (13:30)
--- NOTE | 2017-09-05 13:35 | PDOC PROGRESS REPORT ---
Subjective Progress Note for:: 09/05/17 Subjective:: DAMARIS TOUSSAINT is a 61 year old male with history of tachycardia, hypertension and dyslipidemia. Patient presents second time in 48 hours with increasing right knee pain swelling and erythema. Patient filled the prescription of Bactrim and doxycycline but has developed significant pain with weightbearing prompting evaluation emergency room. He denies previous episode, he has been working on his knees replacing some henrry. He has what appears to be a 1 cm abrasion or resolving abscess superficial to the tibial tuberosity. Patient otherwise denies recent antibiotic use or previous episode. He is started on linezolid. Given superficial erythema and concern for Cellulitis arthrocentesis is deferred pending orthopedic consult. At this time patient is been treated for prepatellar bursitis with clinical improvement on current regimen Reason For Visit: LEG CELLULITIS Physical Exam Vital Signs: Temp Pulse Resp BP Pulse Ox 98.2 F 66 16 164/89 H 97 09/05/17 08:36 09/05/17 08:36 09/05/17 08:36 09/05/17 08:36 09/05/17 08:36 Intake & Output 09/04/17 09/05/17 09/06/17 06:59 06:59 06:59 Intake Total 925 Output Total 600 Balance 325 Weight 100.335 kg General appearance: PRESENT: no acute distress, well-developed, well-nourished Head exam: PRESENT: atraumatic, normocephalic Eye exam: PRESENT: conjunctiva pink, EOMI, PERRLA. ABSENT: scleral icterus Ear exam: PRESENT: normal external ear exam Mouth exam: PRESENT: moist, tongue midline Neck exam: ABSENT: carotid bruit, JVD, lymphadenopathy, thyromegaly Respiratory exam: PRESENT: clear to auscultation matt. ABSENT: rales, rhonchi, wheezes Cardiovascular exam: PRESENT: RRR. ABSENT: diastolic murmur, rubs, systolic murmur Pulses: PRESENT: normal dorsalis pedis pul Vascular exam: PRESENT: normal capillary refill GI/Abdominal exam: PRESENT: normal bowel sounds, soft. ABSENT: distended, guarding, mass, organolmegaly, rebound, tenderness Rectal exam: PRESENT: deferred Extremities exam: PRESENT: other - Right knee swelling and erythema which appears to be improving. ABSENT: calf tenderness, clubbing, pedal edema Neurological exam: PRESENT: alert, awake, oriented to person, oriented to place , oriented to time, oriented to situation, CN II-XII grossly intact. ABSENT: motor sensory deficit Psychiatric exam: PRESENT: appropriate affect, normal mood. ABSENT: homicidal ideation, suicidal ideation Skin exam: PRESENT: dry, intact, warm. ABSENT: cyanosis, rash Results Laboratory Results: 09/05/17 05:34 09/05/17 05:34 09/05/17 09/05/17 05:34 05:34 WBC 8.8 RBC 4.76 Hgb 14.9 Hct 42.4 MCV 89 MCH 31.3 MCHC 35.1 RDW 13.0 Plt Count 215 Seg Neutrophils % 65.6 Lymphocytes % 19.9 Monocytes % 10.1 Eosinophils % 3.3 Basophils % 1.1 Absolute Neutrophils 5.8 Absolute Lymphocytes 1.8 Absolute Monocytes 0.9 Absolute Eosinophils 0.3 Absolute Basophils 0.1 Sodium 141.4 Potassium 5.0 Chloride 107 Carbon Dioxide 25 Anion Gap 9 BUN 21 H Creatinine 1.11 Est GFR ( Amer) > 60 Est GFR (Non-Af Amer) > 60 Glucose 86 Calcium 8.2 L Impressions: Lower Extremity MRI 09/03/17 19:22 IMPRESSION: 1. Moderate subcutaneous edema of the right knee. [id number] right knee effusion. 2. Right posterior medial meniscal tear. Assessment & Plan - Diagnosis (1) Right knee pain Qualifiers: Chronicity: acute Qualified Code(s): M25.561 - Pain in right knee Is this a current diagnosis for this admission?: Yes (2) Septic prepatellar bursitis of right knee Is this a current diagnosis for this admission?: Yes Plan: This is resolving. We will continue with current regimen. Patient is on clindamycin and his white count is down to 8000 from 21,000 - Time Time Spent with patient: 15-24 minutes Medications reviewed and adjusted accordingly: Yes Anticipated discharge: Home Within: within 72 hours - Inpatient Certification Based on my medical assessment, after consideration of the patient's comorbidities, presenting symptoms, or acuity I expect that the services needed warrant INPATIENT care.: Yes Medical Necessity: Need for IV Antibiotics
[2017-09-05] MEDS: KETOROLAC TROMETHAMINE INJ/PF 30 MG/1 ML SDV IV PRN (14:16)
[2017-09-05] MEDS ORDERED: ONDANSETRON 4 MG TAB.RAPDIS PO PRN (14:34)
[2017-09-05] MEDS: ATORVASTATIN CALCIUM 10 MG TABLET PO SCH (21:21)
[2017-09-06] MEDS: CLINDAMYCIN 600 MG/D5W RTU 600 MG/50 ML RTUPB IV SCH ×2 (03:39→09:32)
[2017-09-06] MEDS: DOFETILIDE 500 MCG CAPSULE PO SCH (05:54)
[2017-09-06] MEDS: HEPARIN SOD (PORCINE) 5,000 UNIT/ML 1 ML SYRINGE SUBCUT SCH (05:54)
--- NOTE | 2017-09-06 06:49 | PDOC PROGRESS REPORT ---
Subjective Progress Note for:: 09/06/17 Reason For Visit: LEG CELLULITIS 61-year-old white male with a septic right prepatellar bursitis which is responding to current antibiotic regimen. Physical Exam Vital Signs: Temp Pulse Resp BP Pulse Ox 36.9 C 64 17 151/81 H 94 09/05/17 23:35 09/05/17 23:35 09/05/17 23:35 09/06/17 00:30 09/05/17 23:35 Intake & Output 09/04/17 09/05/17 09/06/17 06:59 06:59 06:59 Intake Total 925 2352 Output Total 600 Balance 325 2352 Weight 100.335 kg 95.799 kg General appearance: PRESENT: no acute distress Musculoskeletal exam: PRESENT: other - Erythema over the anterior aspect of the right knee continues to decrease. There is minimal induration. There is minimal tenderness. There continues to be restricted range of motion of the knee. Results Laboratory Results: 09/05/17 05:34 09/05/17 05:34 Impressions: Lower Extremity MRI 09/03/17 19:22 IMPRESSION: 1. Moderate subcutaneous edema of the right knee. [id number] right knee effusion. 2. Right posterior medial meniscal tear. Status: Imported from PACS Assessment & Plan - Diagnosis (1) Septic prepatellar bursitis of right knee Is this a current diagnosis for this admission?: Yes Plan: Physical therapy consulted for range of motion exercises
[2017-09-06] MEDS: VALSARTAN 160 MG TABLET PO SCH (09:31)
[2017-09-06] MEDS: ASPIRIN 81 MG TABLET, ENT COATED PO SCH (09:32)
[2017-09-06] MEDS: DOCUSATE SODIUM 100 MG CAPSULE PO SCH (09:33)
--- NOTE | 2017-09-06 12:44 | PDOC DISCHARGE SUMMARY ---
General - Admit/Disc Date/PCP Admission Date/Primary Care Provider: 09/03/17 20:22 Discharge Date: 09/06/17 - Discharge Diagnosis (1) Right knee pain Is this a current diagnosis for this admission?: Yes (2) Septic prepatellar bursitis of right knee Is this a current diagnosis for this admission?: Yes (3) Medial meniscus, posterior horn derangement Is this a current diagnosis for this admission?: Yes - Additional Information Resuscitation Status: Full Code Discharge Diet: Cardiac Discharge Activity: Activity As Tolerated Prescriptions: Ibuprofen [Motrin 800 mg Tablet] 800 mg PO Q8HP PRN #20 tablet PRN Reason: Pain Clindamycin HCl [Cleocin 300 mg Capsule] 600 mg PO Q6 #28 cap Home Medications: Aspirin [Aspirin EC] 81 mg PO QAM 09/03/17 Dofetilide [Tikosyn 500 Mcg Capsule] 500 mcg PO Q12A 09/03/17 Pravastatin Sodium [Pravachol] 40 mg PO QAM 09/03/17 Valsartan [Diovan 160 mg Tablet] 160 mg PO QAM 09/03/17 Clindamycin HCl [Cleocin 300 mg Capsule] 600 mg PO Q6 #28 cap 09/06/17 Ibuprofen [Motrin 800 mg Tablet] 800 mg PO Q8HP PRN #20 tablet 09/06/17 History of Present Illness Patient complains of: increasing right knee pain swelling and erythema. History of Present Illness: DAMARIS TOUSSAINT is a 61 year old male with history of tachycardia, hypertension and dyslipidemia. Patient presents second time in 48 hours with increasing right knee pain swelling and erythema. Patient filled the prescription of Bactrim and doxycycline but has developed significant pain with weightbearing prompting evaluation emergency room. He denies previous episode, he has been working on his knees replacing some henrry. He has what appears to be a 1 cm abrasion or resolving abscess superficial to the tibial tuberosity. Patient otherwise denies recent antibiotic use or previous episode. He is started on linezolid. Given superficial erythema and concern for Cellulitis arthrocentesis is deferred pending orthopedic consult. Hospital Course Hospital Course: Patient was admitted with swelling and pain of his right knee. It appears patient had sustained an injury on the knee and came in a few days later with a infected septic prepatellar of right knee. Patient had an abrasion superficial to the tibial tuberosity and this was thought to be likely the site of entry of the infection. Orthopedic consultation was obtained and it was felt that patient could be treated with conservative management with inflammatory as well as antibiotics. He was started on intravenous clindamycin as well as NSAID and patient has continued to improve. His initial white count was elevated at 20, 000 and this has currently declined to normal white count after about 48 hours of treatment. Patient has remained hemodynamically stable and is been able to ambulate with improving range of motion of his knee. He is also been discharged home for outpatient follow-up. MRI did note a medial meniscus tear of the posterior horn and patient has been advised to follow-up with his PCP and orthopedist in regards to this. Physical Exam Vital Signs: Temp Pulse Resp BP Pulse Ox 98.9 F 64 14 159/87 H 95 09/06/17 11:54 09/06/17 11:54 09/06/17 11:54 09/06/17 11:54 09/06/17 11:54 Intake & Output 09/05/17 09/06/17 09/07/17 06:59 06:59 06:59 Intake Total 925 2352 Output Total 600 Balance 325 2352 Weight 100.335 kg 95.799 kg General appearance: PRESENT: no acute distress, well-developed, well-nourished Head exam: PRESENT: atraumatic, normocephalic Eye exam: PRESENT: conjunctiva pink, EOMI, PERRLA. ABSENT: scleral icterus Ear exam: PRESENT: normal external ear exam Mouth exam: PRESENT: moist, tongue midline Neck exam: ABSENT: carotid bruit, JVD, lymphadenopathy, thyromegaly Respiratory exam: PRESENT: clear to auscultation matt. ABSENT: rales, rhonchi, wheezes Cardiovascular exam: PRESENT: RRR. ABSENT: diastolic murmur, rubs, systolic murmur Pulses: PRESENT: normal dorsalis pedis pul Vascular exam: PRESENT: normal capillary refill GI/Abdominal exam: PRESENT: normal bowel sounds, soft. ABSENT: distended, guarding, mass, organolmegaly, rebound, tenderness Rectal exam: PRESENT: deferred Extremities exam: PRESENT: full ROM - except for R knee with restricted flexion and extension. ABSENT: calf tenderness, clubbing, pedal edema Neurological exam: PRESENT: alert, awake, oriented to person, oriented to place , oriented to time, oriented to situation, CN II-XII grossly intact. ABSENT: motor sensory deficit Psychiatric exam: PRESENT: appropriate affect, normal mood. ABSENT: homicidal ideation, suicidal ideation Skin exam: PRESENT: dry, intact, warm. ABSENT: cyanosis, rash Results Laboratory Results: 09/05/17 05:34 09/05/17 05:34 Impressions: Lower Extremity MRI 09/03/17 19:22 IMPRESSION: 1. Moderate subcutaneous edema of the right knee. Kticl-qy-uyvhvwze right knee effusion. 2. Right posterior medial meniscal tear. Qualifiers - * PATIENT BEING DISCHARGED WITH ANY OF THE FOLLOWING DIAGNOSIS: No Plan Time Spent: Greater than 30 Minutes
[2017-09-06 13:35] VITALS: BP 151/81
== END 2017-09-06 14:30 | disposition home or self-care (01) ==
LOC: ER 14:27 → EH 20:22 → 5 09-04 12:32
PROVIDERS: ADMIT Internal Medicine; ATTEND Internal Medicine
DX: M71.161 Other infective bursitis, right knee (principal); L03.115 Cellulitis of right lower limb; M25.561 Pain in right knee; M23.321 Other meniscus derangements, posterior horn of medial meniscus, right knee; R00.0 Tachycardia, unspecified; I10 Essential (primary) hypertension; E78.5 Hyperlipidemia, unspecified
CPT/HCPCS: 99285; 96372; 96361; 96375; 96365; 96367; 36415 ×3; 87040; 84550; 85025 ×3; 85652; 86140; 80048 ×2; 80053; 73723; 97110; 97116; 97161; G0378 ×5; J1644 ×4; J2020; S0119; J1885 ×2; J2765; J1170; J2550; J7030